=== PATIENT | male | born 1950 | race Caucasian/White ===

== ENCOUNTER 2016-10-28 14:33 | Emergency (ER) | payer OTHER ==
[~2016-10-28 14:33] MED LIST: CITRATE OF1.75 GM/30 PO; GOLYTELY1 PDR PO
[2016-10-28 14:59] LABS: ABSOLUTE BASOPHIL COUNT 0 /CUMM (0.0-0.2); ABSOLUTE EOSINOPHIL COUNT 0.1 /CUMM (0.0-0.7); ABSOLUTE GRANULOCYTE CT 3.7 /CUMM (1.4-6.5); ABSOLUTE LYMPH COUNT 1.5 /CUMM (1.2-3.4); ABSOLUTE MONOCYTE COUNT 0.7 /CUMM (0.10-0.60); BASOPHIL % 0.6 % (0.0-2.0); EOSINOPHIL % 1.9 % (0-5); GRANULOCYTE % 61.6 % (42.2-75.2); HEMATOCRIT 38.3 % (42-52); MEAN CORPUSCULAR HGB 31.5 PG (27.0-31.0); MEAN CORPUSCULAR HGB CONC 33.3 G/DL (33.0-37.0); MEAN CORPUSCULAR VOLUME 94.6 FL (80.0-94.0); MEAN PLATELET VOLUME 11.2 FL (7.4-10.4); PLATELET COUNT 138 /CUMM (130-400); RBC DISTRIBUTION WIDTH 13.7 % (11.5-14.5); RED BLOOD CELL CT 4.05 /CUMM (4.70-6.10); WHITE BLOOD CELL COUNT 6.1 /CUMM (4.8-10.8)
[2016-10-28 15:07] LABS: PT 11.9 SEC (9.4-12.5); PTT 34 SEC (25-37)
--- NOTE | 2016-10-28 15:12 | ED CARDIAC/CP/PALPITATIONS ---
History of Present Illness General Chief Complaint: Chest Pain Stated Complaint: C/P Source: patient Exam Limitations: no limitations Vital Signs & Intake/Output Vital Signs & Intake/Output Vital Signs Date Time Temp Pulse Resp B/P Pulse O2 O2 Flow FiO2 Ox Delivery Rate 10/28 1452 97.5 60 18 145/87 96 Room Air Allergies Coded Allergies: Penicillins (RASH 02/11/16) Reconcile Medications Magnesium Citrate (Citrate Of Magnes) 1.75 GM/30 ML FADY 1 BOT PO DAILY PRN CONSTIPATION PEG 3350/NA SULF,BICARB,CL/KCL (Golytely Packet) 1 PDR PDR 1 PAC PO ONCE PRN CONSTIPATION ADD 6-8 ONCES OF WATER Triage Note: 65 Y/O MALE C/O "AN EPISODE OF A FUNNY FEELING AROUND MY HEART". STATE SYMPTOMS OCCURRED EARLIER TODAY AND, AT PRESENT, DENIES ALL SYMPTOMS/COMPLAINTS. DENIES CURRENT C/P. DENIES SOB. DENIES N/V/D. DENIES DIAPHORESIS. EKG COMPLETE AND VIEWED BY MD MCGOVENR (UNABLE TO SIGN DUE TO PERFORMING STERILE PROCEDURE). TAKEN TO ROOM 2 FOR EVAL. Triage Nurses Notes Reviewed? yes Onset: Gradual Duration: waxing and waning, FEW MONTHS Timing: recent history Quality/Severity: mild Radiation: no radiation Activities at Onset: none Prior Chest Pain/Card Workup: stress test HPI: This is a 65-year-old male with history of schizophrenia, high cholesterol who presents to the ER with chief complaint of on and off episodes of chest pain since the end of September. He states the first episode chest pain was while he was sitting on the computer and read that yes with impact. This made her very anxious and gives brief chest pain. He's had a few fleeting episodes since then one last week while he was anxious. Patient is healthy and active. He goes to the [employer] 3 times a week and lifts weights. He never has chest pain with exertion. Past History Travel History Traveled to [place] past 21 day No Medical History Any Pertinent Medical History? see below for history Neurological: Parkinson's disease EENT: NONE Cardiovascular: NONE Respiratory: NONE Gastrointestinal: NONE Hepatic: NONE Renal: NONE Musculoskeletal: NONE Psychiatric: schizo affective disorder Endocrine: NONE Blood Disorders: NONE Cancer(s): NONE RETAIL GROCER/Reproductive: NONE Surgical History Surgical History: non-contributory Psychosocial History What is your primary language Montserratian Tobacco Use: Quit >30 days ago Family History Comment: FATHTER WITH CABG IN 70'S Hx Contributory? Yes Review of Systems Review of Systems Constitutional: Denies: chills, fever. EENTM: Reports: no symptoms. Respiratory: Denies: cough, short of breath. Cardiovascular: Reports: chest pain. Denies: edema, orthopena, palpitations, peripheral edema, syncope. GI: Denies: abdominal pain. Genitourinary: Reports: no symptoms. Musculoskeletal: Reports: no symptoms. Skin: Reports: no symptoms. Neurological/Psychological: Reports: anxiety. Hematologic/Endocrine: Denies: bruising, bleeding. Immunologic/Allergic: Denies: splenectomy. All Other Systems: Reviewed and Negative Physical Exam Physical Exam General Appearance: well developed/nourished, alert, awake, anxious Head: atraumatic, normal appearance Eyes: Bilateral: normal appearance, PERRL, EOMI. Ears, Nose, Throat: normal pharynx, normal ENT inspection, hearing grossly normal Neck: normal inspection, supple, full range of motion Respiratory: normal breath sounds, chest non-tender, no respiratory distress Cardiovascular: regular rate/rhythm Peripheral Pulses: 2+ radial (R), 2+ radial (L) Gastrointestinal: normal bowel sounds, soft, non-tender Back: normal inspection, normal range of motion Extremities: normal inspection, normal capillary refill, normal range of motion, no edema Neurologic/Psych: no motor/sensory deficits, awake, alert, oriented x 3 Skin: intact, normal color, warm/dry Core Measures ACS in differential dx? No Severe Sepsis Present: No Septic Shock Present: No Progress Differential Diagnosis: AMI, aortic dissection, atrial fibrillation, costochondritis, intracranial hemorrhage, musculoskeletal pain, myocarditis, pericarditis, pneumonia, pneumothorax, PSVT, pulmonary embolism Plan of Care: Orders Procedure Date/time Status TROPONIN LEVEL 10/28 1440 Complete PARTIAL THROMBOPLASTIN TIME 10/28 1440 Complete PROTHROMBIN TIME 10/28 1440 Complete MAGNESIUM 10/28 1440 Complete COMPREHENSIVE METABOLIC PANEL 10/28 1440 Complete CBC WITHOUT DIFFERENTIAL 10/28 1440 Complete EKG 10/28 1435 Active Laboratory Tests 10/28/16 1450: Anion Gap 9, Estimated GFR 36 L, BUN/Creatinine Ratio 15.8, Glucose 65, Calcium 9.4, Magnesium 2.0, Total Bilirubin 0.6, AST 29, ALT 33, Alkaline Phosphatase 53 , Troponin I < 0.01, Total Protein 7.4, Albumin 3.9, Globulin 3.5, Albumin/ Globulin Ratio 1.1, PT 11.9, INR 1.13, APTT 34, CBC w Diff NO MAN DIFF REQ, RBC 4.05 L, MCV 94.6 H, MCH 31.5 H, RDW 13.7, MPV 11.2 H, Gran % 61.6, Lymphocytes % 24.8, Monocytes % 11.1 H, Eosinophils % 1.9, Basophils % 0.6, Absolute Granulocytes 3.7, Absolute Lymphocytes 1.5, Absolute Monocytes 0.7 H, Absolute Eosinophils 0.1, Absolute Basophils 0, PUBS MCHC 33.3 3:[address] CHRISTOPHER HILL (SHANIQUA GOMEZ,AMBER) Initial ED EKG: NSR Departure Departure Time of Disposition: 160 Disposition: HOME OR SELF CARE Condition: Stable Clinical Impression Primary Impression: Atypical chest pain Referrals: TAQUERIA GOMEZ,LEANNA DAVID MD,QUENTIN (PCP/Family) Additional Instructions: Follow-up with your appointment with Dr. Pryor in the office on the . Continue your regular medications. Return to the ER for any changing or worsening symptoms. Departure Forms: Customer Survey General Discharge Information Critical Care Note Critical Care Note Critical Care Time: non-applicable
[2016-10-28 16:09] VITALS: BP 132/79
== END 2016-10-28 16:10 ==
LOC: ERH 14:33
PROVIDERS: Emergency Medicine
DX: R07.89 Other chest pain (principal)
CPT/HCPCS: 93005; 93010